=== PATIENT | female | born 1975 | race Caucasian/White ===

== ENCOUNTER → 2016-12-05 | Outpatient (CLI) | payer BC ==
[2014-06-17 14:00] VITALS: BP 124/79
[~2016-12-05] MED LIST: OMEP20CA9 PO
--- NOTE | 2016-12-05 14:28 | KCIC ---
PROCEDURE MRI brain without contrast. HISTORY Chronic headaches for years, now migraine headaches. Pain behind right eye. TECHNIQUE Sagittal T1, axial T1, axial T2, axial FLAIR, axial T2 gradient, coronal T2, and diffusion imaging with ADC map were performed. COMPARISON None. FINDINGS The ventricles and sulci are within normal limits for age. There is no acute intracranial hemorrhage or extra-axial fluid collection. There is no mass effect or midline shift. There is no restricted diffusion to suggest an acute infarct. Cervicomedullary junction is unremarkable. Pituitary and suprasellar region are unremarkable. Left sphenoid mucosal thickening is noted. Orbital contents are unremarkable. Mastoid air cells are clear. IMPRESSION No acute intracranial findings. Electronically signed by: Miguel Aguirre MD (December 05, 2016 14:26:28)
== END | disposition home or self-care (01) ==
LOC: KCIC MRI 12:38
PROVIDERS: ATTEND Physician Assistant Medical
DX: G44.011 Episodic cluster headache, intractable (principal)
CPT/HCPCS: 70551